=== PATIENT | male | born 1990 | race Caucasian/White ===

== ENCOUNTER 2016-09-17 17:38 | Emergency (ER) | payer OTHER ==
[2016-09-17] MEDS ORDERED: Diphtheria,Pertussis(Acell),Tetanus Vaccine 0.5 ML Syringe IM ONE (18:13)
[2016-09-17] MEDS ORDERED: Lidocaine 1% 20 ML MDV INJECT ONE (18:13)
--- NOTE | 2016-09-17 18:13 | EDM.PDOC ---
ED HPI GENERAL MEDICAL PROBLEM - General Chief Complaint: Laceration Stated Complaint: PT CUT LT THUMB Time Seen by Provider: 09/17/16 18:10 Source of Information: Reports: Patient History Limitations: Reports: No Limitations - History of Present Illness INITIAL COMMENTS - FREE TEXT/NARRATIVE: HISTORY AND PHYSICAL: History of present illness: [Patient comes to the emergency room with a laceration to the pad of his left thumb. Was working on a swather and was cut on a sickle. Occurred about 1-1/2 hours before presenting to the ER. He is left-handed. No numbness or tingling. Cannot remember the date of his last tetanus shot.] Review of systems: As per history of present illness and below otherwise all systems reviewed and negative. Past medical history: As per history of present illness and as reviewed below otherwise noncontributory. Surgical history: As per history of present illness and as reviewed below otherwise noncontributory. Social history: No reported history of drug or alcohol abuse. Family history: As per history of present illness and as reviewed below otherwise noncontributory. Physical exam: 1.5 cm x 1.5 cm flap laceration to the pad of his left thumb. is closed without difficulty. See procedure note. Impression: [Left thumb laceration] Plan: [Rx for cephalexin 500 mg #20 sig 1 by mouth twice a day 0 refills. Instructed to leave dressing until morning. MINDY and fresh bandage twice a day. Keep clean and dry. Sutures out in 1 week in the ER.] Definitive disposition and diagnosis as appropriate pending reevaluation and review of above. - Related Data Allergies Allergy/AdvReac Type Severity Reaction Status Date / Time Penicillins Allergy Cannot Verified 09/17/16 17:57 Remember Home Meds: Home Meds . [No Known Home Meds] 09/17/16 [History] Past Medical History - Past Health History Medical/Surgical History: Denies Medical/Surgical History Social & Family History - Family History Family Medical History: Noncontributory - Tobacco Use Smoking Status *Q: Never Smoker - Recreational Drug Use Recreational Drug Use: No ED ROS GENERAL - Review of Systems Review Of Systems: ROS reveals no pertinent complaints other than HPI. ED EXAM, SKIN/RASH Exam: See Below ED SKIN PROCEDURES - Laceration/Wound Repair Left Finger Lac/Wound length In cm: 1.5 (1.5 x 1.5) Appearance: Subcutaneous, Clean Distal NVT: Neuro & Vascular Intact, No Tendon Injury Anesthetic Type: Local Local Anesthesia - Lidocaine (Xylocaine): 1% Plain Local Anesthetic Volume: 4cc Skin Prep: Chlorhexidine (Hibiciens), Isopropyl Alcohol (Alcohol), Saline Exploration/Debridement/Repair: Wound Explored, in a Bloodless Field, No Foreign Material Found Suture Size: 4-0 # of Sutures: 11 Suture Type: Nylon, Interrupted Sterile Dressing Applied: Nurse Tetanus Status Addressed: Yes Complications: No Course - Vital Signs Last Recorded V/S: Last Vital Signs Temp 98.6 F 09/17/16 17:57 Pulse 84 09/17/16 17:57 Resp 18 09/17/16 17:57 BP 131/77 09/17/16 17:57 Pulse Ox 100 09/17/16 17:57 - Orders/Labs/Meds Orders: Active Orders 24 hr Category Date Time Status Vaccines to be Administered [RC] PER UNIT ROUTINE Care 09/17/16 18:13 Active Meds: Medications Discontinued Medications Generic Name Dose Route Start Last Admin Trade Name Stephanie PRN Reason Stop Dose Admin Bacitracin Confirm 09/17/16 19:09 09/17/16 19:32 Bacitracin Oint 1 Gm Administered 09/17/16 19:10 Not Given Dose 1 dose .ROUTE .STK-MED ONE Bacitracin 1 dose 09/17/16 19:24 09/17/16 19:31 Bacitracin Oint 1 Gm TOP 09/17/16 19:25 1 dose ONETIME ONE Administration Diphtheria/Tetanus/Acell Pertussis 0.5 ml 09/17/16 18:13 09/17/16 19:31 Adacel IM 09/17/16 18:14 0.5 ml .ONCE ONE Administration Lidocaine HCl 20 ml 09/17/16 18:13 09/17/16 19:31 Xylocaine 1% INJECT 09/17/16 18:14 20 ml ONETIME ONE Administration Departure - Departure Time of Disposition: 19:30 Disposition: Home, Self-Care 01 Condition: Good Clinical Impression: Laceration of thumb Qualifiers: Encounter type: initial encounter Damage to nail status: without damage Foreign body presence: without foreign body Laterality: left Qualified Code(s): S61.012A - Laceration without foreign body of left thumb without damage to nail , initial encounter - Discharge Information Instructions: Laceration Care, Adult Referrals: PCP,None [Primary Care Provider] - Forms: ED Department Discharge Additional Instructions: The following information is given to patients seen in the emergency department who are being discharged to home. This information is to outline your options for follow-up care. We provide all patients seen in our emergency department with a follow-up referral. The need for follow-up, as well as the timing and circumstances, are variable depending upon the specifics of your emergency department visit. If you don't have a primary care physician on staff, we will provide you with a referral. We always advise you to contact your personal physician following an emergency department visit to inform them of the circumstance of the visit and for follow-up with them and/or the need for any referrals to a consulting specialist. The emergency department will also refer you to a specialist when appropriate. This referral assures that you have the opportunity for follow-up care with a specialist. All of these measure are taken in an effort to provide you with optimal care, which includes your follow-up. Under all circumstances we always encourage you to contact your private physician who remains a resource for coordinating your care. When calling for follow-up care, please make the office aware that this follow-up is from your recent emergency room visit. If for any reason you are refused follow-up, please contact the [facility] emergency department at and asked to speak to the emergency department charge nurse. [facility] [address] [place] [id number] Establish care with a local primary care provider at the clinical state above. Wound care as we discussed. Take antibiotics as prescribed. Return to ER in 7 days to have sutures removed. Return to ER as needed as discussed. - My Orders Last 24 Hours: My Active Orders 09/17/16 18:13 Vaccines to be Administered [RC] PER UNIT ROUTINE - Assessment/Plan Last 24 Hours: My Active Orders 09/17/16 18:13 Vaccines to be Administered [RC] PER UNIT ROUTINE
[2016-09-17] MEDS ORDERED: Bacitracin Oint 1 GM U/D Packet ONE (19:09)
[2016-09-17] MEDS ORDERED: Bacitracin Oint 1 GM U/D Packet TOP ONE (19:24)
[2016-09-17 21:53] VITALS: BP 128/70
== END 2016-09-17 19:41 | disposition home or self-care (01) ==
LOC: MW.ED 17:38
DX: S61.012A Laceration without foreign body of left thumb without damage to nail, initial encounter (principal); Z88.0 Allergy status to penicillin; Z23 Encounter for immunization; W30.89XA Contact with other specified agricultural machinery, initial encounter
CPT/HCPCS: 12001; 90471; 90715; 99282-25; 99283

== ENCOUNTER 2019-04-14 21:11 | Emergency (ER) | payer BC, OTHER ==
[2019-04-14 21:26] VITALS: BP 122/73; PULSE 82
[2019-04-14] MEDS ORDERED: Lidocaine 1% PF 2 ML SDV INJECT ONE (21:41)
[2019-04-14] MEDS ORDERED: Bacitracin Oint 1 GM U/D Packet TOP ONE (21:42)
[2019-04-14] MEDS ORDERED: Bupivacaine 0.5% 10 ML SDV INJECT ONE (22:13)
--- NOTE | 2019-04-14 22:39 | EDM.PDOC ---
ED HPI GENERAL MEDICAL PROBLEM - General Chief Complaint: Laceration Stated Complaint: LEFT HAND FINGER BLEEDING Time Seen by Provider: 04/14/19 21:51 Source of Information: Reports: Patient History Limitations: Reports: No Limitations - History of Present Illness INITIAL COMMENTS - FREE TEXT/NARRATIVE: HISTORY OF PRESENT ILLNESS: Patient is a 29-year-old male who presents to the ER with complaints of laceration. Approximately 1 hour ago he accidentally cut his right index finger with a clean sharp knife while attempting to cut a box. It was accidental and not intentional. Reports pain only to the finger. Denies any bony pain, weakness, paresthesias. Denies any other injury. Tetanus is up-to-date. Pt is left handed. REVIEW OF SYSTEMS: Other than the symptoms associated with the present events, the following is reported with regard to recent health: General: (-) fever. HENT: (-) congestion. Respiratory: (-) cough. Cardiovascular: (-) chest pain. GI: (-) abdominal pain. : (-) urinary complaints. Musculoskeletal: (-) other aches or pains. Neurological: (-) localized weakness. Skin: (+) laceration PAST MEDICAL HISTORY: reviewed as per nursing notes SOCIAL HISTORY: reviewed as per nursing notes, MEDICATIONS: Per nurse's note ALLERGIES: Per nurse's note, reviewed by me PHYSICAL EXAMINATION: GENERALIZED APPEARANCE: well developed, well nourished in no distress VITAL SIGNS: Per nurse's note, reviewed by me SKIN: Warm, dry; (-) cyanosis; (+) ~3cm laceration to right index finger tip from volar to dorsal aspect with min subcutaneous involvement and mild oozing but no pulsatile bleeding. minimal involvement of edge of nail but no gross nailbed injury. 2+ radial pulses. HEAD: (-) scalp swelling, (-) tenderness. EYES: (-) conjunctival pallor, (-) scleral icterus. ENMT: (-) stridor; mucous membranes moist. NECK: (-) tenderness, (-) stiffness, CHEST AND RESPIRATORY: (-) rales, (-) rhonchi, (-) wheezes; breath sounds equal bilaterally. HEART AND CARDIOVASCULAR: (-) irregularity; (-) murmur, (-) gallop. ABDOMEN AND GI: Soft; (-) tenderness, (-) guarding, (-) rebound, (-) palpable masses, EXTREMITIES: see skin exam. no bony tenderness. FROM. 5/5+ strength. FDS and FDP intact against resistance. cap refill <2 sec. sensation intact. NEURO AND PSYCH: Alert. Cranial nerves grossly intact; strength symmetric. gait steady PROCEDURE: see below EMERGENCY DEPARTMENT COURSE AND TREATMENT: Patient's condition improved during Emergency Department evaluation. The patient presents with laceration, without evidence of significant foreign body, or neurovascular injury. Patient's wound was aseptically prepped and draped after the wound had received local wound care including irrigation. The wound was closed without incident and the patient tolerated the procedure well. The patient was advised of risk of scar and infection, and it was felt that the risk of infection was outweighed by the need to close this wound for hemostasis and cosmoses. The patient was given wound care precautions and understands to seek medical attention immediately if there are any signs of infection. Otherwise, the patient will follow up with the primary care provider in 1-2 days for wound check and 5-7 days for suture removal. PLAN AND FOLLOW-UP: Patient received written and verbal instructions regarding this condition. Return to ED immediately with any new or worsening symptoms. Follow up to be arranged by patient with pcp in 1-2 days for further evaluation and 5-7 days for removal. Given discharge precautions. Patient expressed verbal understanding. - Related Data Allergies Allergy/AdvReac Type Severity Reaction Status Date / Time Penicillins Allergy Cannot Verified 04/14/19 21:25 Remember Home Meds: Home Meds . [No Known Home Meds] 09/17/16 [History] Past Medical History - Past Health History Medical/Surgical History: Denies Medical/Surgical History HEENT History: Reports: None Cardiovascular History: Reports: None Respiratory History: Reports: None Gastrointestinal History: Reports: None Genitourinary History: Reports: None Musculoskeletal History: Reports: None Neurological History: Reports: None Psychiatric History: Reports: None Endocrine/Metabolic History: Reports: None Hematologic History: Reports: None Immunologic History: Reports: None Oncologic (Cancer) History: Reports: None Dermatologic History: Reports: None - Infectious Disease History Infectious Disease History: Reports: None - Past Surgical History Head Surgeries/Procedures: Reports: None Social & Family History - Family History Family Medical History: Noncontributory - Tobacco Use Smoking Status *Q: Never Smoker Second Hand Smoke Exposure: No - Caffeine Use Caffeine Use: Reports: None - Recreational Drug Use Recreational Drug Use: No ED ROS GENERAL - Review of Systems Review Of Systems: See Below (see dictation) ED EXAM, SKIN/RASH Exam: See Below (see dictation) ED SKIN PROCEDURES - Laceration/Wound Repair Right Digit - 4th (Ring) Appearance: Linear, Clean Distal NVT: Neuro & Vascular Intact Anesthetic Type: Digital Local Anesthesia - Bupivicaine (Marcaine): 0.5% Plain Local Anesthetic Volume: 3cc Skin Prep: Providone-Iodine (Betadine) Exploration/Debridement/Repair: Wound Explored, In a Bloodless Field, No Foreign Material Found Closed with: Sutures Lac/Wound length In cm: 3 Suture Size: 5-0 Suture Type: Prolene Sterile Dressing Applied: Nurse Complications: No Course - Vital Signs Last Recorded V/S: Last Vital Signs Temp 97.1 F 04/14/19 21:24 Pulse 82 04/14/19 21:24 Resp 18 04/14/19 21:24 BP 122/73 04/14/19 21:24 Pulse Ox 98 04/14/19 21:24 - Orders/Labs/Meds Meds: Medications Discontinued Medications Generic Name Dose Route Start Last Admin Trade Name Raghuq PRN Reason Stop Dose Admin Bacitracin 1 dose 04/14/19 21:42 04/14/19 22:21 Bacitracin Oint 1 Gm TOP 04/14/19 21:43 1 dose ONETIME ONE Administration Bupivacaine HCl 10 ml 04/14/19 22:13 04/14/19 22:21 Sensorcaine-Mpf 0.5% INJECT 04/14/19 22:14 10 ml ONETIME ONE Administration Lidocaine HCl 2 ml 04/14/19 21:41 04/14/19 22:21 Xylocaine-Mpf 1% INJECT 04/14/19 21:42 Not Given ONETIME ONE Departure - Departure Time of Disposition: 22:38 Disposition: Home, Self-Care 01 Condition: Good Clinical Impression: Laceration of finger of right hand with damage to nail - Discharge Information *PRESCRIPTION DRUG MONITORING PROGRAM REVIEWED*: Not Applicable *COPY OF PRESCRIPTION DRUG MONITORING REPORT IN PATIENT EUGENE: Not Applicable Instructions: Laceration Care, Adult, [id number] Referrals: Judy Burks,Clinic [Ordering Only Provider] - 2 Days (have wound checked in 2 days. Have sutures removed in 7 days.) Forms: ED Department Discharge Additional Instructions: The following information is given to patients seen in the emergency department who are being discharged to home. This information is to outline your options for follow-up care. We provide all patients seen in our emergency department with a follow-up referral. The need for follow-up, as well as the timing and circumstances, are variable depending upon the specifics of your emergency department visit. If you don't have a primary care physician on staff, we will provide you with a referral. We always advise you to contact your personal physician following an emergency department visit to inform them of the circumstance of the visit and for follow-up with them and/or the need for any referrals to a consulting specialist. The emergency department will also refer you to a specialist when appropriate. This referral assures that you have the opportunity for follow-up care with a specialist. All of these measure are taken in an effort to provide you with optimal care, which includes your follow-up. Under all circumstances we always encourage you to contact your private physician who remains a resource for coordinating your care. When calling for follow-up care, please make the office aware that this follow-up is from your recent emergency room visit. If for any reason you are refused follow-up, please contact the [facility] Emergency Department at and asked to speak to the emergency department charge nurse. Sepsis Event Note - Evaluation Sepsis Screening Result: No Definite Risk - Focused Exam Vital Signs: Vital Signs Temp Pulse Resp BP Pulse Ox 04/14/19 21:24 97.1 F 82 18 122/73 98 Date Exam was Performed: 04/14/19 Time Exam was Performed: 22:55
== END 2019-04-14 22:54 | disposition home or self-care (01) ==
LOC: MW.ED 21:11
DX: S61.314A Laceration without foreign body of right ring finger with damage to nail, initial encounter (principal); Z88.0 Allergy status to penicillin; W26.0XXA Contact with knife, initial encounter
CPT/HCPCS: 12002; 99283; J3490